=== PATIENT | male | born 1970 | race Caucasian/White ===

== ENCOUNTER 2020-02-24 01:28 | Emergency (ER) | payer OTHER ==
[~2020-02-24] VITALS: Ht 182.9 cm; Wt 77.1 kg
[2020-02-24 01:30] VITALS: BP 142/100
[2020-02-24] MEDS ORDERED: TDAP [DIPH/PERTUSSIS/TET] 0.5 ML VIAL IM ONE ×2 (01:44→02:00)
== END 2020-02-24 01:53 | disposition home or self-care (01) ==
LOC: ER 01:40
DX: S05.02XA Injury of conjunctiva and corneal abrasion without foreign body, left eye, initial encounter (principal); W22.8XXA Striking against or struck by other objects, initial encounter; Y93.89 Activity, other specified; Y92.89 Other specified places as the place of occurrence of the external cause; Y99.8 Other external cause status
CPT/HCPCS: 90715

== ENCOUNTER 2020-08-05 21:20 | Emergency (ER) | payer OTHER ==
[~2020-08-05] VITALS: Ht 182.9 cm; Wt 77.1 kg
[2020-08-05 21:30] VITALS: BP 140/94
== END 2020-08-05 22:54 | disposition home or self-care (01) ==
LOC: ER 21:23
DX: S46.211A Strain of muscle, fascia and tendon of other parts of biceps, right arm, initial encounter (principal); X50.0XXA Overexertion from strenuous movement or load, initial encounter; Y93.89 Activity, other specified; Y92.89 Other specified places as the place of occurrence of the external cause; Y99.8 Other external cause status